=== PATIENT | male | born 1990 | race African-American/Black ===

== ENCOUNTER 2021-05-03 23:28 | Emergency (ER) | payer OTHER, SELFPAY ==
[2021-05-03 23:34] VITALS: BP 177/99; BP 180/104; PULSE 81; PULSE 86; RESP 18; O2SAT 100; BMI 30.7
[2021-05-03 23:42] VITALS: BP 177/99; PULSE 86; RESP 18; O2SAT 100
--- NOTE | 2021-05-03 23:47 | ED_ITS ---
HPI - General Adult General Chief complaint: General Medical Stated complaint: pcp? Time Seen by Provider: 05/03/21 23:42 Source: patient Mode of arrival: ambulatory Limitations: no limitations History of Present Illness HPI narrative: Patient comes emergency room complaining of seeing colors patient states that he started feeling anxious, short of breath. Patient states that right before this happened he was smoking marijuana. Patient denies chest pain or shortness of breath at this time. Related Data Allergies Allergy/AdvReac Type Severity Reaction Status Date / Time No Known Allergies Allergy Verified 05/03/21 23:46 Review of Systems Review of Systems: Constitutional : No Weight loss, No Fever, No Chills, No Night Sweats, No Fatigue, No Malaise ENT/Mouth : No Hearing loss, No Ear Pain, No Nasal Congestion, No Sinus Pain, No Hoarseness, No sore throat, No Rhinorrhea, No Swallowing Difficulty Eyes: No Eye Pain, No Swelling, No Redness, No Foreign Body, No Discharge, complaining of seeing colors Cardiovascular : No Chest Pain, No SOB, No Dyspnea on Exertion, No Orthopnea, No Edema, No Palpitations Respiratory : No Cough, No Sputum, No Wheezing, No Smoke Exposure, No Dyspnea at this time, earlier today had anxiety and shortness of breath Gastrointestinal : No Nausea, No Vomiting, No Diarrhea, No Constipation, No abdominal Pain, No Hematochezia, No Melena Genitourinary : no irregular bleeding, No Dysuria, No Urinary Frequency, No Hematuria, No Urinary Incontinence, No Urgency, No Flank Pain, No Urinary Flow Changes, No Hesitancy Musculoskeletal : No joint pain, No Myalgias, No Joint Swelling Skin : No Skin Lesions, No rash Neuro : No Weakness, No Numbness, No Paresthesias, No Loss of Consciousness, No Dizziness, No Headache Psych : Result anxiety, No Depression, No SI/HI/AH/VH, No Social Issues, Heme/Lymph: No Bruising, No Bleeding,No Lymphadenopathy Endocrine : No Polyuria, No Polydipsia, No Temperature Intolerance PMFSH Social History Social History Advance Directives: No Advance Directives Information Provided: No Physical Exam Vital Signs: Vital Signs: Last Vital Signs Pulse 86 05/03/21 23:42 Resp 18 05/03/21 23:42 BP 177/99 H 05/03/21 23:42 Pulse Ox 100 05/03/21 23:42 Body Mass Index 30.7 Const: Other: Appearance: Alert. Oriented X3. No acute distress. Patient alert Eyes: Pupils equal, round and reactive to light. ENT: Pharynx normal. Neck: Normal inspection. Neck supple. No lymph nodes noted. No crepitus CVS: Normal heart rate and rhythm. Pulses normal. Normal S1 and S2 Respiratory: No respiratory distress. Breath sounds normal. No Wheezing. No rales Abdomen: Soft and nontender. No rigidity. No distention. Skin: Skin warm and dry. Normal skin color. Normal skin turgor. Extremities: No lower extremity edema. No lower extremity edema. No Lacerations. No Rash Neuro: Oriented X 3. No motor deficit. No sensory deficit. Moving all extermities. No slurred speech. Course Course Course Narrative: Patient consented to blood work. However patient did not provide urine. I was informed by the patient's nurse that the patient did no longer want to wait for his labs, did not provide urine, patient just wanted to leave. Patient was seen walking so over around the emergency room, restless, wanting to leave. Patient left before I was able to talk him about his c hemistry results and encouraging him to provide a urine sample Medical Decision Making Lab Data Result diagrams: 05/04/21 00:01 05/04/21 00:01 Labs: Lab Results 05/04/21 05/04/21 Range/Units 00:01 00:01 WBC 8.2 (4.8-10.8) X10*3/uL RBC 4.34 L (4.60-5.80) X10*6/uL Hgb 13.3 L (14.0-18.0) g/dl Hct 40.0 L (42.0-52.0) % MCV 92.2 (80.0-98.0) fL MCH 30.6 (27.0-33.0) pg MCHC 33.3 (31.0-36.0) g/dl RDW 11.9 (11.0-16.0) % Plt Count 204 (160-400) X10*3/uL MPV 9.8 (9.4-12.4) fL Immature Gran % (Auto) 0.4 (0.0-0.4) % Neut % (Auto) 65.0 (45-73) % Lymph % (Auto) 27.0 (20-40) % [place] % (Auto) 7.1 (2-11) % Eos % (Auto) 0.1 (0-4) % Baso % (Auto) 0.4 (0-2) % Lymph # (Auto) 2.2 (1.2-4.9) X10*3/uL [place] # (Auto) 0.6 (0.1-1.2) X10*3/uL Eos # (Auto) 0.0 (0.0-0.4) X10*3/uL Baso # (Auto) 0.0 (0.0-0.2) X10*3/uL Abs Immat Gran (auto) 0.03 (0.00-0.03) X10*3/uL Absolute Neuts (auto) 5.3 (2.0-8.3) x10*3/uL Absolute Nucleated RBC 0.000 (0.0-0.012) X10*3/uL Nucleated RBC % (auto) 0.0 (0.0-0.2) /100WBC Sodium 138 (135-145) mmol/L Potassium 3.2 L (3.3-5.1) mmol/L Chloride 100 (96-108) mmol/L Carbon Dioxide 25 (22-29) mmol/L Anion Gap 16 (12-20) BUN 11 (9-16) mg/dL Creatinine 1.27 (0.5-1.4) mg/dL Estim Creat Clear Calc 87.5 Estimated GFR > 60 Random Glucose 139 H (60-115) mg/dL Calcium 9.3 (8.4-10.2) mg/dL Total Bilirubin 0.4 (0.0-1.0) mg/dL Direct Bilirubin 0.2 (0.0-0.5) mg/dL AST 24 (5-37) U/L ALT 48 H (0-40) U/L Alkaline Phosphatase 95 (39-117) U/L Total Protein 7.2 (6.5-8.0) g/dL Albumin 4.4 (3.5-5.0) g/dL Discharge Plan Discharge Clinical Impression: Sensory hallucinations Patient Disposition: Elopement
[2021-05-04 00:05] LABS: MANUAL DIFF FLAG NO
[2021-05-04 00:11] LABS: Basophils Percent Auto 0.4 % (0-2); Eosinophils Percent Auto 0.1 % (0-4); Hemoglobin 13.3 g/dl (14.0-18.0); Imm Gran Abs Auto 0.03 X10*3/uL (0.00-0.03); Imm Gran Pct Auto 0.4 % (0.0-0.4); Lymphocytes Absolute Auto 2.2 X10*3/uL (1.2-4.9); Mean Corpuscular HGB Conc 33.3 g/dl (31.0-36.0); Mean Corpuscular Hemoglobin 30.6 pg (27.0-33.0); Mean Corpuscular Volume 92.2 fL (80.0-98.0); Mean Platelet Volume 9.8 fL (9.4-12.4); Monocytes Absolute Auto 0.6 X10*3/uL (0.1-1.2); Monocytes Percent Auto 7.1 % (2-11); Neutrophils Absolute Auto 5.3 x10*3/uL (2.0-8.3); Platelet Count 204 X10*3/uL (160-400); Red Blood Count 4.34 X10*6/uL (4.60-5.80); Red Cell Distribution Width 11.9 % (11.0-16.0); White Blood Count 8.2 X10*3/uL (4.8-10.8)
--- NOTE | 2021-05-04 00:27 | PC.NURSE ---
PATIENT NOT WANTING TO STAY FOR D/C PAPERWORK THAT PROVIDER IS WORKING ON. PATIENT STATING HE RIDE IS HERE, TALKING WITH THE TEST PILOT, CONFIRMING RIDE FOR PATIENT IS HERE. PATIENT LEAVING WITH STEADY GAIT, NO DISTRESS. PRIMARY RN RAFA MADE AWARE THAT PATIENT IS LEAVING WITHOUT HIS PAPERWORK. VERBAL DISCHARGE FROM DR. KRUGER WHO TOLD PATIENT HE COULD LEAVE WITH A RIDE.
[2021-05-04 00:33] LABS: Alanine Aminotransferase 48 U/L (0-40); Albumin Level 4.4 g/dL (3.5-5.0); Alkaline Phosphatase 95 U/L (39-117); Anion Gap 16 (12-20); Aspartate Amino Transferase 24 U/L (5-37); Bilirubin Direct 0.2 mg/dL (0.0-0.5); Bilirubin Total 0.4 mg/dL (0.0-1.0); Blood Urea Nitrogen 11 mg/dL (9-16); Calcium 9.3 mg/dL (8.4-10.2); Carbon Dioxide 25 mmol/L (22-29); Chloride 100 mmol/L (96-108); Creatinine Clr Calc Pharmacy 87.5; Estimated Glomerular Filt Rate > 60; Glucose Random 139 mg/dL (60-115); Potassium 3.2 mmol/L (3.3-5.1); Sodium 138 mmol/L (135-145); Total Protein 7.2 g/dL (6.5-8.0)
== END 2021-05-04 00:48 | disposition left against medical advice (07) ==
PROVIDERS: Emergency Provider Emergency Medicine
DX: R44.2 Other hallucinations (principal)
CPT/HCPCS: 36415; 80048; 80076; 85025; 99283; 99284

== ENCOUNTER 2022-07-10 14:51 | Emergency (ER) | payer OTHER, SELFPAY ==
[2022-07-10 15:05] VITALS: BP 118/70; PULSE 82; RESP 16; TEMP 36.6; O2SAT 99; BMI 27.3
--- NOTE | 2022-07-10 15:07 | ED_ITS ---
HPI - Neck Pain/Injury General Chief Complaint: Neck Pain/Injury Stated Complaint: Neck pain/Swollen neck/Headache Time Seen by Provider: 07/10/22 15:24 Source: patient Mode of arrival: ambulatory Limitations: no limitations History of Present Illness HPI Narrative: 31 yo male presenting to the ER for evaluation of of left lower jaw pain that radiates into the neck and ear for the last couple of days. He reports pain in his left lower molar. No mouth swelling. No difficulty opening or closing the mouth. No fevers, chills or neck swelling. MD complaint: neck pain Onset (ago): day(s) Place: home Radiation: left lateral Severity: moderate Quality: sharp Duration: intermittent Exacerbating factors: rest (laying supine worsens pain) Associated symptoms: headache and swollen glands Treatments prior to arrival: none Related Data Previous Rx's Medication Instructions Recorded amoxicillin 875 mg-potassium 1 tab PO BID #14 tabs 07/10/22 clavulanate 125 mg tablet ibuprofen 600 mg tablet 600 mg PO Q8H PRN pain #14 tabs 07/10/22 Allergies Allergy/AdvReac Type Severity Reaction Status Date / Time No Known Allergies Allergy Verified 07/10/22 15:10 Review of Systems Review of Systems: Yes all other systems are reviewed and are negative [facility] Social History Social History Advance Directives: No Advance Directives Information Provided: Yes Physical Exam Vital Signs: Vital Signs: Last Vital Signs Temp 97.8 F 07/10/22 15:05 Pulse 82 07/10/22 15:05 Resp 16 07/10/22 15:05 BP 118/70 07/10/22 15:05 Pulse Ox 99 07/10/22 15:05 O2 Del Method 07/10/22 15:05 BMI result Body Mass Index 27.3 Appearance: Alert. Oriented X3. No acute distress. Eyes: Pupils equal, round and reactive to light. ENT: Pharynx normal. Moist mucus membranes. tender 3rd molar on the left lower without associated swelling, erythema or fluctunace. Neck: Normal inspection. Neck supple. No LAD, normal ROM, no midline tenderness. no nuchal rigidity CVS: Normal heart rate and rhythm. Pulses normal. Respiratory: No respiratory distress. Breath sounds normal. Skin: Skin warm and dry. Normal skin color. Normal skin turgor. No rashes. Extremities: Normal inspection x4 Neuro: Oriented X 3. Nonfocal Course Course Course Narrative: 31 yo male presenting with left lower dental pain that radiates to jaw and neck. No evidence of abscess or soft tissue involvement of the neck. No trismus. Likely radiating dental pains. Will start on nsaid, abx and have him f/u with his dentist. stable for d/c home. patient agrees with plan. Medical Decision Making Differential Diagnosis Differential Diagnoses: The differential diagnosis associated with the presentation includes dental pain, dental abscess, cervical strain, cervical radiculopathy, doubt den jose angel abscess, ludwigs angina. External Record Review External record reviewed: Outpatient record and Prior outpatient labs Prescription Management I considered prescription management with: Pain Medication and Antibiotic Critical Care Time Critical Care Time Critical Care Time: No Discharge Plan Discharge Clinical Impression: Pain, dental Patient Disposition: Home, Self-Care Instructions: Toothache (ED) Additional Instructions: Follow up with your dentist. If you develop new or worsening symptoms call 911 or come back to the ER for further evaluation. Prescriptions: New amoxicillin-pot clavulanate 875-125 mg tablet 1 tab PO BID Qty: 14 0RF ibuprofen 600 mg tablet 600 mg PO Q8H PRN (Reason: pain) Qty: 14 0RF Discharge Date/Time: 07/10/22 15:24
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
--- OUTSIDE RECORDS SUMMARY | 2022-07-10 15:18 | XMS_ITS | Continuity of Care Document ---
:1990 Author Organization [facility] Address [address] [place] [address]- Care Team Providers Name Role Phone Not on Staff, PCP Primary Care Physician Unavailable Encounter [facility] Date(s): 09/20/21 - 09/20/[address] [address]- Encounter Diagnosis Knee injury (Final) - 09/20/21 Discharge Disposition: A-D/C Home Attending Physician: Los Schmitz MD Admitting Physician: Los Schmitz MD Referring Physician: Not on Staff, Referring MD Allergies, Adverse Reactions, Alerts No Known Allergies Immunizations Given and Recorded Vaccine Date Status [...] Measles/Mumps/Rubella Virus Vaccine9 03/02/92 Given Poliovirus Vaccine, Qcfdapdgplk11 01/04/95 Given Poliovirus Vaccine, Jfdaqfrphhf78 11/25/92 Given Poliovirus Vaccine, Xzwcclcdiud80 02/04/91 Given Poliovirus Vaccine, Jdeupbefblq68 90 Given Diphth/Pertussis, Whl Cell/Tet(oldterm)14 01/04/95 Given Diphth/Pertussis, Whl Cell/Tet(oldterm)15 11/25/92 Given Diphth/Pertussis, Whl Cell/Tet(oldterm)16 04/17/91 Given Diphth/Pertussis, Whl Cell/Tet(oldterm)17 02/04/91 Given Diphth/Pertussis, Whl Cell/Tet(oldterm)18 90 Given Haemophilus B Conj Vaccine (oldterm)19 03/15/92 Given Haemophilus B Conj Vaccine (oldterm)20 04/17/91 Given Haemophilus B Conj Vaccine (oldterm)21 02/04/91 Given Haemophilus B Conj Vaccine (oldterm)22 90 Given 1Admin Note: BHARGAVI. unknown, no document in gcpfpm5Rtmgl Note: VIS Ivtso3Pprqa Note: QD8Nierh Note: MZ2Fpwie Note: HEP L6Knssg Note: HEP V8Usiid Note: HEP B8 Admin Note: NIY6Ulvnw Note: IRT03Fgvuf Note: CBZ15Kclju Note: FFM71Ytfux Note: EJV17Cwzih Note: INB21Xxcgh Note: CVX82Czjlo Note: QDB50Srnkq Note: RVU51Xvfvr Note: SUV67Eubtt Note: ZQD32Rpahj Note: MZU45Mnkts Note: HBF14Akzdp Note: HIB22 Admin Note: HIB Medications Benadryl [...] Exam Date Time Procedure Performing Provider Status 09/20/21 8:37 AM Knee 1 or 2 Views Right Bein , Gabriela; Auth (Ve rified) Notes:(Knee 1 or 2 Views Right) Reason For Exam: with Pain;TraumaRESULT: Knee 1 or 2 Views Right Examination: Right knee performed on 09/20/2021. History: Reason: Trauma; with Pain; Clinical Question(s): Fracture Findings: Frontal and lateral views of the right knee are submitted. No fractures or dislocations are demonstrated. There is no joint effusion. IMPRESSION: There is no acute osseous abnormality. WSN: [id number] Ordering Physician: Marcia Banuelos Dictated By: Le Mccoy MD Dictated Date/Time: 09/20/21 8:40 am Reviewed By: Le Mccoy MD Signed By: Le Mccoy MD Signed Date/Time: 09/20/21 8:40 am Transcribed By: DAYAMI Transcribed Date/Time: 09/20/21 8:40 am Vital Signs Most recent to oldest [Reference Range]: 1 Oxygen Saturation [94-100 %] 97 % (09/20/21 8:49 AM) Pulse Rate [55-90 bpm] 80 bpm (09/20/21 8:49 AM) Blood Pressure [90-138/55-84 mm Hg] 133/94 mm Hg (09/20/21 8:49 AM) Respiratory Rate [16-30 br/min] 15 br/min *L* (09/20/21 8:49 AM) Mode of Delivery (Oxygen) Room air (09/20/21 8:49 AM) Blood pressure sites Arm, left (09/20/21 8:49 AM)
== END 2022-07-10 15:24 | disposition home or self-care (01) ==
PROVIDERS: Emergency Provider Emergency Medicine
DX: K08.89 Other specified disorders of teeth and supporting structures (principal)
CPT/HCPCS: 99281; 99283

== ENCOUNTER 2023-10-29 20:09 | Emergency (ER) | payer SELFPAY ==
[2023-10-29 20:19] VITALS: BP 131/86; PULSE 122; RESP 20; TEMP 36.6; O2SAT 97; BMI 29.9
--- NOTE | 2023-10-29 20:22 | ED_ITS ---
HPI - Skin/Abscess/Foreign Bdy General Chief complaint: Skin/Abscess/Foreign Body Stated complaint: bug bite lt leg Time Seen by Provider: 10/29/23 20:22 Source: patient Mode of arrival: ambulatory Limitations: no limitations History of Present Illness HPI narrative: 33-year-old male presents to the ER for evaluation of a reddened bug bite to the lateral aspect of his left thigh that he noticed yesterday. He was scratching in his sleep and has some scratches to the area and it was read. Denies history of similar reactions to bug bites in the past. Denies any fever or chills. No drainage from the area. MD complaint: insect bite/sting Onset (ago): day(s) Tetanus up to date: yes Location: LLE Severity: mild Quality: pruritic Pain Consistency: intermittent Relieving factors: none Exacerbating factors: none Context: witnessed insect bite Associated symptoms: denies other symptoms Treatments prior to arrival: none Related Data Previous Rx's ?Medication ?Instructions ?Recorded amoxicillin 875 mg-potassium 1 tab PO BID #14 tabs 07/10/22 clavulanate 125 mg tablet ibuprofen 600 mg tablet 600 mg PO Q8H PRN pain #14 tabs 07/10/22 Allergies Allergy/AdvReac Type Severity Reaction Status Date / Time No Known Allergies Allergy Verified 10/29/23 20:22 Review of Systems Review of Systems: Yes all other systems are reviewed and are negative Physical Exam Vital Signs: Vital Signs: Last Vital Signs Temp 98 F 10/29/23 20:19 Pulse 122 H 10/29/23 20:19 Resp 20 10/29/23 20:19 BP 131/86 10/29/23 20:19 Pulse Ox 97 10/29/23 20:19 O2 Del Method Room Air 10/29/23 20:19 BMI result Body Mass Index 29.9 Appearance: Alert. Oriented X3. No acute distress. HEENT: normal inspection CVS: Normal heart rate and rhythm. Pulses normal. Respiratory: No respiratory distress. Skin: Skin warm and dry. Normal skin color. Normal skin turgor. Extremities: Lateral aspect of the left thigh with a 1 cm area of erythema with overlying excoriations, no warmth, tenderness, drainage, induration or fluctuance. Neuro: Oriented X 3. No motor deficit. No sensory deficit. Medical Decision Making Medical Decision Making MDM Narrative: 33-year-old male presents the ER for evaluation of a bug bite on the left outer thigh that noticed yesterday. He has been scratching the area. No evidence of infection on examination. No evidence of a tick bite, no ECM rash. No fever or chills. No joint aches. Appears to be a simple bug bite without any infection. Advised to use hydrocortisone cream for itching and inflammation. Signs and symptoms of cellulitis and infection were discussed with the patient. Stable for discharge home. Differential Diagnosis Differential Diagnoses: The differential diagnosis associated with the presentation includes Insect bite, cellulitis, tick bite External Record Review External record reviewed: Prior outpatient labs Prescription Management I considered prescription management with: Pain Medication and Antibiotic Critical Care Time Critical Care Time Critical Care Time: No Discharge Plan Discharge Clinical Impression: Insect bite Qualifiers: Encounter type: initial encounter Site of insect bite: thigh Laterality: left Qualified Code(s): S70.362A - Insect bite (nonvenomous), left thigh, initial encounter Patient Disposition: Home, Self-Care Instructions: Insect Bite or Sting (ED) Additional Instructions: recommend over the counter hydrocortisone cream to help with itching and inflammation use ice to the area as needed for pain and swelling If you develop new or worsening symptoms call 911 or come back to the ER for further evaluation. Prescriptions: No Action amoxicillin-pot clavulanate 875-125 mg tablet 1 tab PO BID Qty: 14 0RF ibuprofen 600 mg tablet 600 mg PO Q8H PRN (Reason: pain) Qty: 14 0RF Print Language: Belarusian
[2023-10-29 20:27] VITALS: BP 131/86; PULSE 122; RESP 20; TEMP 36.6; O2SAT 97
== END 2023-10-29 20:27 | disposition home or self-care (01) ==
LOC: HO.ED 20:25
PROVIDERS: Emergency Provider Internal Medicine
DX: S70.362A Insect bite (nonvenomous), left thigh, initial encounter (principal); W57.XXXA Bitten or stung by nonvenomous insect and other nonvenomous arthropods, initial encounter; Y93.9 Activity, unspecified; Y92.9 Unspecified place or not applicable; Y99.8 Other external cause status
CPT/HCPCS: 99282